=== PATIENT | male | born 1960 | race Caucasian/White ===

== ENCOUNTER 2017-06-30 09:47 | Emergency (ER) | payer OTHER ==
[~2017-06-30] VITALS: Ht 177.8 cm; Wt 97.5 kg
[~2017-06-30 09:47] MED LIST: ANTIPYRINE/BENZ10 ML OT; AUGMENTIN 875 M1 TAB PO; FISH OIL1000 MG PO; FLEXERIL10 MG PO; GABAPENTIN100 M1 PO; HYDROCODONE 7.51 TAB PO; LISINOPRIL 10MG10 MG PO; LORTAB 500 MG-11 TAB PO; MEDROL 4MG. DOSE4 MG PO; MULTI-VITAMIN1 EACH PO; NORCO 325 MG-51 TAB PO; PERCOCET 10 MG1 EACH PO; PREDNISONE 20MG20 MG PO; ZITHROMAX Z-PA250 M1 PO
--- OUTSIDE RECORDS SUMMARY | 2017-06-30 09:49 | External Medical Summary Rpt | CCD ---
Author Author [employer] Organization [employer] Address Unknown Phone Unavailable Purpose Continuity of Care Document - through 2016
--- OUTSIDE RECORDS SUMMARY | 2017-06-30 09:49 | External Medical Summary Rpt | CCD ---
Author Author , JESUS VILLALTA Address Unknown Phone [email or web address] Purpose Continuity of Care Document - 04-23-2017 through 2016 Problems Code Diagnosis DOS Provider Status M51.16 INTERVERTEB RAL DISC DISORDERS W RADICULOPAT HY, LUMBAR REGION Results Labs Lab Lab Date Result Refere Interp Status Commen Order Detail nces retati t Range on Hemoglobin A1c in Blood (04-23-2017 09:28) Hemoglo 5.9 % 0.0% Normal complet bin A1c 017 - ed in 09:28 7.0% Blood
--- OUTSIDE RECORDS SUMMARY | 2017-06-30 09:49 | External Medical Summary Rpt | CCD ---
Author Author , JESUS VILLALTA Address Unknown Phone [email or web address] Purpose Continuity of Care Document - 04-23-2017 [...]
--- OUTSIDE RECORDS SUMMARY | 2017-06-30 09:50 | External Medical Summary Rpt ---
Author Author [facility] Montoya, [employer] Organization [employer] Address Unknown Phone Unavailable Results Basic metabolic panel in Blood Observa Value Referen Units Interpr Notes Date tion ce etation Range Urea 7 - 18 mg/dL Normal No Sep 12 nitrogen informati 2017 9:28 [Mass/vol on in AM ume] in source Serum or data Plasma Calcium 8.5 - mg/dL Normal No Sep 12 [Mass/vol 10.1 informati 2017 9:28 ume] in on in AM Serum or source Plasma data Chloride 98 - 107 mmoL/L Normal No Sep 12 [Moles/vo informati 2017 9:28 lume] in on in AM Serum or source Plasma data Carbon 21.0 - mmoL/L Normal No Sep 12 dioxide, 32.0 informati 2017 9:28 total on in AM [Moles/vo source lume] in data Serum or Plasma Creatinin 0.70 - mg/dL Normal No Sep 12 e 1.30 informati 2017 9:28 [Mass/vol on in AM ume] in source Serum or data Plasma Estimated >60 ML/MIN No REFERENCE Sep 12 informati RANGE: 2017 9:28 glomerula on in >60 AM r source ML/MIN/1. filtratio data 73 SQUARE n rate METERSIf (GF this patient is -A merican, then multiply theresult by 1.210. Glucose 74 - 106 mg/dL High No Sep 12 [Mass/vol informati 2017 9:28 ume] in on in AM Serum or source Plasma data Potassium 3.5 - 5.1 mmoL/L Normal No Sep 12 informati 2017 9:28 [Moles/vo on in AM lume] in source Serum or data Plasma Sodium 136 - 145 mmoL/L Normal No Sep 12 [Moles/vo informati 2017 9:28 lume] in on in AM Serum or source Plasma data Hemoglobin A1c in Blood Observa Value Referen Units Interpr Notes Date tion ce etation Range Hemoglo 5.9 0.0 - % Normal < 6% Sep 12 bin A1c 7.0 NON-TAMI 2017 in DAWIT 9:28 AM Blood LEVEL< 7% CONTROL LED DIABETI C LEVEL> 8% POORLY CONTROL LED DIABETI C LEVEL
--- OUTSIDE RECORDS SUMMARY | 2017-06-30 09:50 | External Medical Summary Rpt | CCD ---
Demographics Preferred Language Northern Irish Marital Status Unknown Adventism Affiliation Unknown Race Unknown Ethnic Group Unknown Author Author , JESUS VILLALTA Address Unknown Phone Immunization No patient found.
--- OUTSIDE RECORDS SUMMARY | 2017-06-30 09:50 | External Medical Summary Rpt | CCD ---
Demographics Preferred Language Bur[place]ian Marital Status Unknown Restorationist Affiliation Unknown Race Unknown Ethnic Group Unknown Author Author , JESUS VILLALTA Address Unknown Phone Immunization No patient found.
--- NOTE | 2017-06-30 10:26 | Urgent Treatment Center Report ---
History of Present Issue Date/Time Seen by Provider 06/30/17 1024 Visit Reason Pt arrived:Walked Presenting Problem:PT C/O HEAD CONGESTION AND COUGH X2 DAYS Location if Accident: Onset of symptoms date/time:/ or onset unknown for:MEDICAL HX UNKNOWN Have you (or family members/close friends) recently traveled outside the [place]? N If Yes, where/when: Have you had exposure to infectious disease within the past month? TB? Other? Specify: Patient state that he has been having sinus pain and pressure along with cough now for around 2-3 days State that it has continued to get worse. State that he is tender under his eyes and feels pressure behind his eyes and in his teeth States that he has done this before when he had a sinus infection ALLERGIES Coded Allergies: oxycodone (12/10/16) Home Medications Active Scripts Prednisone (Prednisone 20MG) 20 MG PO BID #10 TAB Prov: 07/24/15 Cyclobenzaprine Hcl (Flexeril) 10 MG PO BID #14 TAB Prov: 07/24/15 HYDROCODONE/ACETAMINOPHEN ([place] 5-325 Tablet) 1 TAB PO Q6HP PRN pain #12 TAB Prov: 07/24/15 Reported Medications Gabapentin (Gabapentin 100MG) 100 MG PO QID #270 Multiple Vitamin (Multi-Vitamin Plain) 1 TAB PO DAILY History Medical History General CAD? No Angina: Yes ME: No Hypertension? Yes Hyperlipidemia? No CHF? No DVT? No PE? No COPD? No Asthma? Yes Anemia? No GERD? No Gastric ulcers? No GI Bleed? No Hernia? Yes Thyroid Problems? No Hypothyroidism? No CVA? No Seizures? No Diabetes? No Renal Insuffiency? No UTI? Yes Stones? Yes BPH? No GB Disease: No Nephritic Syndrome? No Asplenia? No Hepatitis? No Sickle Cell Disease? No Arthritis? No Migraines? No Cataracts? No Glaucoma? No MRSA? No HIV? No TB? No Anxiety? No Depression? No Cancer? Yes Site: BASAL CELL CA-FACE More? No Immunization HX DT/Tetanus 1-4 Years Ago Flu Refused Pneumonia Refuses Surgical Hx Previous Surgery?Y BILATERAL TUBES CYST FROM SINUS VASECTOMY TENDON REPAIR RT SHOULDER X2 EXC NEOPLASM LT FACE HEART CATH 14 YR AGO - "CLEAR"-ACID REFLUX Family History Family HX Diabetes Yes CAD Yes Hypertension Yes Hyperlipidemia Yes Cancer Yes TB No Social History Smoking Hx Smoker: Never Smoker Tobacco: No Alcohol Alcohol: No Review of Systems All Other Systems Reviewed and Negative ENT nose discharge, nose congestion. Psychiatric/Neurological headache Physical Exam Vital Signs Vital Signs Date Time Temp Pulse Resp B/P Pulse O2 O2 Flow FiO2 Ox Delivery Rate 06/30 1004 97.9 85 20 145/97 97 General Appearance normal appearance, WD/WN, no apparent distress Ear, Nose, Throat sinus pain/drainage, nasal congestion, tenderness noted over sinus cavity, reports feeling of pressure behind eyes and teeth, puffy under eyes Respiratory Status Yes: trachea midline, chest symmetrical, non tender chest. No: respiratory distress. Lung Sounds bilateral: normal breath sounds, lungs clear. Cardiovascular normal exam, regular rate/rhythm, no peripheral edema Neurologic alert, normal exam, oriented x 3 Medical Decision Making LABS/Meds/Orders Pt receiving controlled substance in ED? No Results/Orders Current Medication Orders Sig/Dread Start time Last Medication Dose Route Stop Time Status Admin Methylprednisolone 125 MG ONCE ONE 06/30 1030 DC Sodium Succinate IM 06/30 1031 Departure Departure Time of Disposition 1030 Disposition DC Home or Self Care(routine) Clinical Impression Primary Impression: Sinusitis Qualifiers: Sinusitis location: maxillary Chronicity: unspecified Qualified Code: J32.0 - Chronic maxillary sinusitis Condition STABLE Referrals Carine WHITTEN,Tomi Glass (Family): 2 Days-Call Office If no improvement or worsening of symptoms Patient Instructions DI for Sinusitis, Sinus Headache, Sinusitis Additional Instructions Start antibiotic. Sinus infections may take 2-3 days to notice much improvement so be sure to use conservative measures as discussed for symptoms Flonase 2 spray in each nostril daily to help with nasal congestion, sinus an ear pressure/inflammation Lots of Fluids Sleep elevated Humidifer/vaporizer Discharge Counseling Counseled pt/family regarding diagnosis, medications/RX, home care, follow up needs Prescriptions Current Visit Scripts Amoxicillin/Potassium Clav (Augmentin 875-125 Tablet) 1 EACH PO BID #14 TAB Fluticasone Propionate (Flonase 50 Mcg Nasal [place]) 2 SPRAY NA DAILY #1 BOT Benzonatate (Tessalon Perle) 100 MG PO TID #15 SGL at 1033
[2017-06-30] MEDS ORDERED: FLONASE 50 MCG16 GM (10:32)
[2017-06-30] MEDS ORDERED: AUGMENTIN 875-1 EACH PO (10:32)
[2017-06-30] MEDS ORDERED: TESSALON PERLE100 M1 PO (10:32)
[2017-06-30 10:45] VITALS: BP 145/97
== END 2017-06-30 10:47 | disposition home or self-care (01) ==
LOC: UTC 09:47
DX: J32.0 Chronic maxillary sinusitis (principal); I10 Essential (primary) hypertension; J45.909 Unspecified asthma, uncomplicated